=== PATIENT | female | born 1960 | race Caucasian/White ===

== ENCOUNTER 2018-03-27 09:42 | Inpatient (IN) | payer MEDICAID ==
[2018-03-27 10:25] LABS: ADD MAN DIFF? NO
[2018-03-27 10:26] LABS: BASOPHILS % 0.5 % (0.0-2.0); EOSINOPHILS # 0.1 10^3/ul (0.0-0.5); EOSINOPHILS % 1.7 % (0.0-7.0); HEMATOCRIT 42.1 % (37.0-47.0); HEMOGLOBIN 14.1 g/dl (12.0-16.0); LYMPHOCYTES % 34.8 % (15.0-51.0); MEAN CORPUSCULAR HGB CONC 33.5 g/dl (32.0-37.0); MEAN CORPUSCULAR VOLUME 86.4 fl (82.0-101.0); MONOCYTE # 0.4 10^3/ul (0.3-0.9); MONOCYTES % 7.3 % (0.0-11.0); NEUTROPHIL # 3.2 10^3/ul (1.6-7.5); NEUTROPHILS % 55.4 % (39.0-77.0); PLATELET COUNT 257 10^3/UL (140-415); RED BLOOD COUNT 4.87 10^6/ul (4.20-5.40); RED CELL DISTRIBUTION WIDTH 12.9 % (11.5-14.5)
[2018-03-27 10:26] LABS: WHITE BLOOD COUNT 5.8 10^3/ul (4.8-10.8)
[2018-03-27] MEDS: NICARDipine HCL 30 MG CAPSULE PO (10:27)
[2018-03-27] MEDS: ONDANSETRON 4 MG INJ IV (10:27)
[2018-03-27] MEDS: morphine 4 MG/ML VIAL IV (10:27)
[2018-03-27] MEDS: SOD CHLORIDE 0.9% 1,000 ML IV (10:28)
[2018-03-27 10:30] LABS: INR 0.89; PROTIME 12.1 Sec (11.9-14.9); PT RATIO 0.9
[2018-03-27 10:31] LABS: PARTIAL THROMBOPLASTIN TIME 31.3 Sec (23.0-35.0)
[2018-03-27 10:32] LABS: ALANINE AMINOTRANSFERASE 38 IU/L (13-69); ALBUMIN 4.2 g/dl (3.3-4.9); ALBUMIN/GLOBULIN RATIO 1.02; ALKALINE PHOSPHATASE 145 IU/L (42-121); ANION GAP 10 (5-13); ASPARTATE AMINO TRANSFERASE 39 IU/L (15-46); BILIRUBIN,INDIRECT 0.3 mg/dl (0-1.1); BILIRUBIN,TOTAL 0.3 mg/dl (0.2-1.3); BLOOD UREA NITROGEN 14 mg/dl (7-20); CALCIUM 9.3 mg/dl (8.4-10.2); CARBON DIOXIDE 25 mmol/L (21-31); CHLORIDE 110 mmol/L (97-110); CREATININE 0.61 mg/dl (0.44-1.00); Estimated GFR > 60 mL/min (>60); GLUCOSE 102 mg/dl (70-220); LIPASE 62 U/L (23-300); POTASSIUM 3.7 mmol/L (3.5-5.1); SODIUM 145 mmol/L (135-144); TOTAL PROTEIN 8.3 g/dl (6.1-8.1)
[2018-03-27 10:43] LABS: TROPONIN-I < 0.012 ng/ml (0.000-0.120)
[2018-03-27] MEDS ORDERED: ACETAMINOPHEN 325 MG TAB PO (11:30)
[2018-03-27] MEDS ORDERED: hydrALAzine 20 MG INJ IV (11:30)
[2018-03-27] MEDS ORDERED: LABETALOL HCL 20MG INJ IV (11:30)
[2018-03-27] MEDS ORDERED: NACL 0.9% 3 ML SYG IV (11:30)
[2018-03-27] MEDS ORDERED: ONDANSETRON 4 MG INJ IV (11:30)
[2018-03-27 11:54] LABS: ADD UMIC YES; UR ASCORBIC ACID NEGATIVE (NEGATIVE); UR BACTERIA FEW /HPF (NONE SEEN); UR BILIRUBIN (Dip) NEGATIVE (NEGATIVE); UR BLOOD (Dip) NEGATIVE (NEGATIVE); UR CLARITY SLIGHTLY CLOUDY (CLEAR); UR COLOR STRAW (YELLOW); UR GLUCOSE (Dip) NEGATIVE (NEGATIVE); UR KETONES (Dip) NEGATIVE (NEGATIVE); UR LEUKOCYTE ESTERASE (Dip) TRACE Leu/ul (NEGATIVE); UR NITRITE (Dip) NEGATIVE (NEGATIVE); UR RBC 1 /HPF (0-5); UR SPECIFIC GRAVITY (Dip) 1.006 (1.003-1.030); UR SQUAMOUS EPITHELIAL CELL FEW /HPF (FEW); UR TOTAL PROTEIN (Dip) NEGATIVE (NEGATIVE); UR UROBILINOGEN (Dip) NEGATIVE (NEGATIVE); UR WBC 2 /HPF (0-5)
[2018-03-27 12:13] LABS: CHOLESTEROL 325 mg/dl (100-200)
[2018-03-27 12:31] LABS: HDL CHOLESTEROL 65 mg/dl (37-92); LDL CHOLESTEROL,CALCULATED 182 mg/dl; TRIGLYCERIDES 389 mg/dl (0-149)
[2018-03-27] MEDS: ASPIRIN 325 MG TAB PO (13:52)
[2018-03-27] MEDS: NIFEdipine (XL) 30 MG TAB PO (13:52)
[2018-03-27] MEDS: HYDROCODONE/APAP (5/325) TAB PO (15:28)
[2018-03-27] MEDS: ATORVASTATIN 80 MG TAB PO (20:36)
[2018-03-28 05:36] LABS: ADD MAN DIFF? NO
[2018-03-28 05:39] LABS: BASOPHILS % 0.2 % (0.0-2.0); EOSINOPHILS # 0.1 10^3/ul (0.0-0.5); EOSINOPHILS % 0.9 % (0.0-7.0); HEMATOCRIT 41.9 % (37.0-47.0); LYMPHOCYTES % 24.1 % (15.0-51.0); MEAN CORPUSCULAR HEMOGLOBIN 28.8 pg (29.0-33.0); MEAN CORPUSCULAR HGB CONC 33.4 g/dl (32.0-37.0); MEAN CORPUSCULAR VOLUME 86.2 fl (82.0-101.0); MEAN PLATELET VOLUME 11.1 fl (7.4-10.4); MONOCYTE # 0.6 10^3/ul (0.3-0.9); MONOCYTES % 7.2 % (0.0-11.0); NEUTROPHIL # 5.5 10^3/ul (1.6-7.5); NEUTROPHILS % 67.2 % (39.0-77.0); PLATELET COUNT 245 10^3/UL (140-415); RED BLOOD COUNT 4.86 10^6/ul (4.20-5.40)
[2018-03-28 05:39] LABS: WHITE BLOOD COUNT 8.2 10^3/ul (4.8-10.8)
[2018-03-28 05:56] LABS: HEMOGLOBIN A1C 5.3 % (0-5.9)
[2018-03-28 06:16] LABS: ALANINE AMINOTRANSFERASE 36 IU/L (13-69); ALBUMIN 3.5 g/dl (3.3-4.9); ALBUMIN/GLOBULIN RATIO 0.94; ALKALINE PHOSPHATASE 124 IU/L (42-121); ANION GAP 13 (5-13); ASPARTATE AMINO TRANSFERASE 29 IU/L (15-46); BILIRUBIN,INDIRECT 0.4 mg/dl (0-1.1); BILIRUBIN,TOTAL 0.4 mg/dl (0.2-1.3); BLOOD UREA NITROGEN 15 mg/dl (7-20); CALCIUM 9.7 mg/dl (8.4-10.2); CARBON DIOXIDE 24 mmol/L (21-31); CHLORIDE 104 mmol/L (97-110); CREATININE 0.61 mg/dl (0.44-1.00); Estimated GFR > 60 mL/min (>60); GLUCOSE 96 mg/dl (70-220); POTASSIUM 3.6 mmol/L (3.5-5.1); SODIUM 141 mmol/L (135-144); TOTAL PROTEIN 7.2 g/dl (6.1-8.1)
[2018-03-28] MEDS: NIFEdipine (XL) 60 MG TAB PO (09:29)
[2018-03-28] MEDS: ASPIRIN 81 MG TAB PO (09:29)
[2018-03-28] MEDS ORDERED: ATORVASTATIN 40 MG TAB PO (21:00)
== END 2018-03-28 13:57 | disposition home or self-care (01) | DRG 305 ==
LOC: E/R 09:42 → 6WM 11:15
DX: I16.1 Hypertensive emergency (principal); E87.0 Hyperosmolality and hypernatremia; I10 Essential (primary) hypertension; G43.109 Migraine with aura, not intractable, without status migrainosus
CPT/HCPCS: 36415; 70450; 70544; 70549; 70551; 71045; 76536; 80053; 80061; 81001; 83036; 83690; 83735; 84484; 85025; 85610; 85730; 93005; 93306; 96374; 96375; 99285-25